=== PATIENT | female | born 1985 | race Caucasian/White ===

== ENCOUNTER → 2018-08-06 13:52 | Outpatient (CLI) | payer OTHER, SELFPAY | PROVIDERS: PCP Family Medicine; Visit Provider Family Medicine | DX: G47.30 Sleep apnea, unspecified (principal); R06.83 Snoring; E66.9 Obesity, unspecified | CPT/HCPCS: 95806 ==

== ENCOUNTER → 2018-10-28 20:00 | Outpatient (CLI) | payer OTHER, SELFPAY | PROVIDERS: PCP Family Medicine; Visit Provider Nurse Practitioner Family | DX: G47.33 Obstructive sleep apnea (adult) (pediatric) (principal); G47.19 Other hypersomnia; G47.8 Other sleep disorders; R06.83 Snoring; R53.83 Other fatigue | CPT/HCPCS: 95810 ==

== ENCOUNTER 2024-11-03 15:37 | Outpatient (CLI) | payer OTHER, SELFPAY ==
[2024-11-03 19:05] LABS: Hematocrit 40.5 % (37.0-47.0); Hemoglobin 13.3 g/dL (12.2-16.2); Mean Corpuscular HGB Conc 32.8 g/dL (31.8-35.4); Mean Corpuscular Hemoglobin 29.1 pg (27.0-31.2); Mean Corpuscular Volume 88.6 fl (81-99); Red Blood Count 4.57 M/mm3 (4.20-5.40); Red Cell Distribution Width 11.8 % (11.5-17.5); White Blood Count 5.9 K/mm3 (4.8-10.8)
[2024-11-03 19:06] LABS: Basophils % 0.7 % (0.1-2.0); Eosinophils # 0.2 K/mm3 (0.0-0.4); Eosinophils % 2.5 % (0.1-12.0); Lymphocytes # 2.4 K/mm3 (0.7-4.5); Lymphocytes % 40.3 % (10-50); Mean Platelet Volume 10.7 fl (7.4-10.4); Monocytes % 6.6 % (1.7-9.3); Neutrophils # 2.9 K/mm3 (1.8-7.8); Neutrophils % 49.7 % (37.0-80.0); Platelet Count 237 K/mm3 (142-424)
[2024-11-03 19:07] LABS: Monocytes # 0.4 K/mm3 (0.1-1.0)
[2024-11-03 19:29] LABS: Alanine Aminotransferase 20 U/L (12-78); Albumin Level 3.7 g/dl (3.5-5.0); Albumin/Globulin Ratio 1.6 (1.1-1.8); Alkaline Phosphatase 66 U/L (38-126); Aspartate Amino Transferase 27 U/L (14-36); Bilirubin,Total 0.7 mg/dl (0.2-1.3); Blood Urea Nitrogen 18 mg/dl (7-17); Calcium 8.1 mg/dl (8.4-10.2); Carbon Dioxide 30 mmol/L (22.0-30.0); Chloride 109 mmol/L (98-107); Estimated Glomerular Filt Rate 92 ml/min (>60); GFR (African American) 112 ML/MIN (>60); Globulin 2.3 g/dL (1.3-3.2); Glucose 90 mg/dl (74-100); Sodium 140 mmol/L (136-145); Uric Acid 3.6 mg/dl (2.5-6.2)
[2024-11-03 19:34] LABS: Anion Gap 5.2 mEq/L (5-15); Potassium 4.2 mmoL/L (3.5-5.1)
[2024-11-03 19:42] LABS: C-Reactive Protein 1.2 mg/L (0-4)
[2024-11-03 19:46] LABS: Erythrocyte Sedimentation Rate 17 mm/hr (0-20)
[2024-11-03 19:47] LABS: 25-OH Vitamin D, Total 33.8 ng/mL (30-100)
[2024-11-03 20:00] LABS: Thyroid Stimulating Hormone 1.57 uIU/mL (0.465-4.68)
[2024-11-03 20:19] LABS: Vitamin B12 296 pg/mL (239-931)
[2024-11-03 20:47] LABS: Hemoglobin A1C 4.7 % (4.0-6.0)
[2024-11-05 08:14] LABS: RA Latex Turbid. <10.0 IU/mL (<14.0)
[2024-11-07 09:08] LABS: Antinuclear Antibodies, IFA Negative (.)
[2024-11-07 12:08] LABS: Anti-Centromere B Antibodies <0.2 AI (0.0-0.9); Anti-DNA (DS) Ab Qn 2 IU/mL (0-9); Anti-Jo-1 <0.2 AI (0.0-0.9); Anti-Smith Antibody <0.2 AI (0.0-0.9); Antichromatin Antibodies 0.3 AI (0.0-0.9); Antiscleroderma-70 Antibodies <0.2 AI (0.0-0.9); RNP Antibodies <0.2 AI (0.0-0.9); Sjogren's Anti-SS-A <0.2 AI (0.0-0.9); Sjogren's Anti-SS-B <0.2 AI (0.0-0.9)
== END 2024-11-03 23:59 | disposition home or self-care (01) ==
LOC: LAB.DROPOF 11-04 09:53
PROVIDERS: PCP Nurse Practitioner; Visit Provider Nurse Practitioner
DX: M94.0 Chondrocostal junction syndrome [Tietze] (principal); R07.9 Chest pain, unspecified; Z98.84 Bariatric surgery status; E66.9 Obesity, unspecified
CPT/HCPCS: 80050; 80053; 82306; 82607; 83036; 84443; 84550; 85025; 85651; 86038; 86140; 86225; 86235; 86431

== ENCOUNTER 2024-11-25 19:15 | Outpatient (CLI) | payer OTHER, SELFPAY ==
[2024-11-25 20:14] LABS: Calcium 8.9 mg/dl (8.4-10.2); Phosphorous 3.6 mg/dl (2.5-4.5)
[2024-11-25 20:15] LABS: Magnesium 1.8 mg/dl (1.6-2.3)
[2024-11-25 20:48] LABS: Intact Parathyroid Hormone 71.4 pg/mL (7.5-53.5)
[2024-11-28 13:10] LABS: Calcium, Ionized 4.7 mg/dL (4.5-5.6)
== END 2024-11-25 23:59 | disposition home or self-care (01) ==
LOC: LAB 19:17
PROVIDERS: PCP Nurse Practitioner; Visit Provider Nurse Practitioner
DX: E83.51 Hypocalcemia (principal)
CPT/HCPCS: 82310; 82330; 83735; 83970; 84100